=== PATIENT | male | born 1995 | race Caucasian/White ===

== ENCOUNTER 2016-08-27 02:26 | Emergency (ER) | payer OTHER ==
[~2016-08-27] VITALS: Ht 177.8 cm; Wt 72.7 kg
[2016-08-27 02:32] VITALS: BP 139/86; TEMP 97.6
[2016-08-27] MEDS ORDERED: CEPHALEXIN500 M1 PO (03:30)
[2016-08-27 03:48] VITALS: PULSE 86
== END 2016-08-27 03:47 | disposition home or self-care (01) ==
LOC: COL.ER 02:26
DX: S61.216A Laceration without foreign body of right little finger without damage to nail, initial encounter (principal); S66.126A Laceration of flexor muscle, fascia and tendon of right little finger at wrist and hand level, initial encounter; W26.0XXA Contact with knife, initial encounter; Y93.G1 Activity, food preparation and clean up; F10.120 Alcohol abuse with intoxication, uncomplicated; Y90.9 Presence of alcohol in blood, level not specified